=== PATIENT | male | born 2000 | race Two or more races ===

== ENCOUNTER 2024-08-17 14:46 | Outpatient (REF) | payer OTHER, SELFPAY | END 2024-08-17 14:47 | disposition home or self-care (01) | LOC: LBN 14:46 | PROVIDERS: Visit Provider Nurse Practitioner Family | DX: L08.9 Local infection of the skin and subcutaneous tissue, unspecified (principal); B95.7 Other staphylococcus as the cause of diseases classified elsewhere | CPT/HCPCS: 87077; 87070; 87186; 87205 ==

== ENCOUNTER 2025-02-14 13:17 | Outpatient (REF) | payer OTHER, SELFPAY | END 2025-02-14 13:18 | disposition home or self-care (01) | LOC: LBN 13:17 | PROVIDERS: PCP Nurse Practitioner Family; Visit Provider Registered Nurse Maternal Newborn | DX: L02.11 Cutaneous abscess of neck (principal); R22.1 Localized swelling, mass and lump, neck | CPT/HCPCS: 87077; 87070; 87186; 87205 ==

== ENCOUNTER 2025-03-30 08:18 | Outpatient (REF) | payer OTHER, SELFPAY ==
--- NOTE | 2025-03-30 07:38 | SKI_PTH ---
PATIENT: Bartolome Mcclain LOC: [facility] U#:[id number] AGE/SX: 25/M ROOM: RE03/30/[address]: Wesley Garay MD : 2000 BED: DIS: 03/30/2025 SPEC #: [id number] RECD: 03/30/25 12:52 STATUS: ARNULFO REChristofer #: [id number] DESTINEE: 03/30/25 07:[address]: Wesley Garay DEPT: Surgical Specimen RECD BY: Leyla Dueñas ENTERED: 03/30/25 12:54 SP TYPE: SKI OT DR: Isrrael Dash DNP Tissues: 1 - SKIN BIOPSY(SHAVE/PUNCH) Procedures: SKIN LEVEL 4 Comments: [id number]
== END 2025-03-30 08:19 | disposition home or self-care (01) ==
LOC: LBN 08:18
PROVIDERS: PCP Nurse Practitioner Family; Visit Provider Otolaryngology
DX: L90.5 Scar conditions and fibrosis of skin (principal); L98.9 Disorder of the skin and subcutaneous tissue, unspecified
CPT/HCPCS: 88305